=== PATIENT | male | born 1965 | race Caucasian/White ===

== ENCOUNTER 2017-04-12 23:04 | Inpatient (IN) | payer MEDICARE, OTHER ==
[2017-04-13] MEDS: ALBUMIN HUMAN 25% 100 ML IV ×2 (00:13→02:17)
[2017-04-13 00:26] LABS: ADD MAN DIFF? NO
[2017-04-13 00:30] LABS: WHITE BLOOD COUNT 7.8 10^3/ul (4.8-10.8)
[2017-04-13 00:30] LABS: BASOPHILS % 0.5 % (0.0-2.0); EOSINOPHILS # 0.3 10^3/ul (0.0-0.5); EOSINOPHILS % 3.8 % (0.0-7.0); HEMATOCRIT 45.4 % (42.0-52.0); HEMOGLOBIN 13.4 g/dl (14.0-18.0); LYMPHOCYTES % 13.2 % (15.0-51.0); MEAN CORPUSCULAR HGB CONC 29.5 g/dl (32.0-37.0); MEAN PLATELET VOLUME 10.6 fl (7.4-10.4); MONOCYTES % 12.1 % (0.0-11.0); NEUTROPHIL # 5.5 10^3/ul (1.6-7.5); NEUTROPHILS % 70.1 % (39.0-77.0); PLATELET COUNT 134 10^3/UL (140-415); RED BLOOD COUNT 5.82 10^6/ul (4.70-6.10); RED CELL DISTRIBUTION WIDTH 20.7 % (11.5-14.5)
[2017-04-13 00:53] LABS: PARTIAL THROMBOPLASTIN TIME 38.8 Sec (25.0-35.0)
[2017-04-13 00:56] LABS: ALANINE AMINOTRANSFERASE 57 IU/L (13-69); ALBUMIN 4.1 g/dl (3.3-4.9); ALBUMIN/GLOBULIN RATIO 1.07; ALKALINE PHOSPHATASE 127 IU/L (42-121); ANION GAP 19 (8-16); ASPARTATE AMINO TRANSFERASE 19 IU/L (15-46); BILIRUBIN,INDIRECT 0.1 mg/dl (0-1.1); BILIRUBIN,TOTAL 0.1 mg/dl (0.2-1.3); BLOOD UREA NITROGEN 31 mg/dl (7-20); CALCIUM 8.8 mg/dl (8.4-10.2); CARBON DIOXIDE 27 mmol/L (21-31); CHLORIDE 96 mmol/L (97-110); CREATININE 8.78 mg/dl (0.61-1.24); GLUCOSE 135 mg/dl (70-220); POTASSIUM 3.9 mmol/L (3.5-5.1); SODIUM 138 mmol/L (135-144); TOTAL PROTEIN 7.9 g/dl (6.1-8.1)
[2017-04-13 01:48] LABS: TROPONIN-I < 0.012 ng/ml (0.00-0.12)
[2017-04-13 02:08] LABS: LACTIC ACID 2.5 mmol/L (0.5-2.0)
[2017-04-13 02:53] LABS: LACTIC ACID 0.9 mmol/L (0.5-2.0)
[2017-04-13 03:08] LABS: INR 0.99; PROTIME 13.1 Sec (11.9-14.9)
[2017-04-13 03:43] LABS: LACTIC ACID 1.1 mmol/L (0.5-2.0)
[2017-04-13] MEDS: PIPER-TAZO 2.25 GM (PMX) 50 ML IVPB (03:47)
[2017-04-13] MEDS: VANCOMYCIN 1 GM (PMX) 250 ML IVPB (04:21)
[2017-04-13] MEDS ORDERED: VANCOMYCIN IV PER PHARMACY XX (07:00)
[2017-04-13] MEDS: AMLODIPINE 5 MG TAB PO (09:00)
[2017-04-13 09:33] LABS: ALANINE AMINOTRANSFERASE 50 IU/L (13-69); ALBUMIN 4.2 g/dl (3.3-4.9); ALBUMIN/GLOBULIN RATIO 1.31; ALKALINE PHOSPHATASE 87 IU/L (42-121); ANION GAP 22 (8-16); ASPARTATE AMINO TRANSFERASE 19 IU/L (15-46); BILIRUBIN,INDIRECT 0.1 mg/dl (0-1.1); BILIRUBIN,TOTAL 0.1 mg/dl (0.2-1.3); BLOOD UREA NITROGEN 37 mg/dl (7-20); CALCIUM 8.3 mg/dl (8.4-10.2); CARBON DIOXIDE 20 mmol/L (21-31); CHLORIDE 100 mmol/L (97-110); CREATININE 9.57 mg/dl (0.61-1.24); GLUCOSE 86 mg/dl (70-220); SODIUM 137 mmol/L (135-144); TOTAL PROTEIN 7.4 g/dl (6.1-8.1)
[2017-04-13] MEDS: CINACALCET 30 MG TAB PO (09:47)
[2017-04-13] MEDS: CALCITRIOL 0.25 MCG CAP PO (09:47)
[2017-04-13] MEDS: MIDODRINE 5 MG TAB PO ×2 (09:47→17:23)
[2017-04-13] MEDS: CALCIUM ACETATE 667 MG CAP PO ×3 (09:48→17:22)
[2017-04-13] MEDS: SEVELAMER 800 MG TAB PO ×3 (09:48→17:22)
[2017-04-13] MEDS: VANCOMYCIN 1 GM 250 ML IVPB (09:54)
[2017-04-14] MEDS: AMLODIPINE 5 MG TAB PO (08:28)
[2017-04-14] MEDS: SEVELAMER 800 MG TAB PO ×3 (08:29→17:20)
[2017-04-14] MEDS: CINACALCET 30 MG TAB PO (08:30)
[2017-04-14] MEDS: CALCIUM ACETATE 667 MG CAP PO ×3 (08:30→17:21)
[2017-04-14] MEDS: CALCITRIOL 0.25 MCG CAP PO (08:30)
[2017-04-14] MEDS: MIDODRINE 5 MG TAB PO ×2 (09:00→17:21)
[2017-04-15 07:31] LABS: VANCOMYCIN,RANDOM 26.1 ug/ml
[2017-04-15] MEDS: AMLODIPINE 5 MG TAB PO (09:00)
[2017-04-15] MEDS: CALCIUM ACETATE 667 MG CAP PO ×3 (12:00→18:05)
[2017-04-15] MEDS ORDERED: HEPARIN 1000 UNITS/NS (A-LINE) 1,000 ML (13:47)
[2017-04-15] MEDS ORDERED: IODIXANOL LOCM 100 ML BTL (13:47)
[2017-04-15] MEDS ORDERED: LIDOCAINE 1% (MDV) 20 ML INJ (13:47)
[2017-04-15] MEDS ORDERED: FENTAnyl 50 MCG/ML VIAL (14:00)
[2017-04-15] MEDS: MIDODRINE 5 MG TAB PO ×2 (17:00→17:41)
[2017-04-15] MEDS: CALCITRIOL 0.25 MCG CAP PO (17:40)
[2017-04-15] MEDS: CINACALCET 30 MG TAB PO (17:41)
[2017-04-15] MEDS: SEVELAMER 800 MG TAB PO (17:45)
[2017-04-15 21:41] LABS: HEPATITIS B SURFACE ANTIBODY POSITIVE (NEGATIVE)
[2017-04-15 21:45] LABS: HEPATITIS B SURFACE ANTIGEN NEGATIVE (NEGATIVE)
[2017-04-16 08:27] LABS: ADD MAN DIFF? NO
[2017-04-16 08:30] LABS: WHITE BLOOD COUNT 8.7 10^3/ul (4.8-10.8)
[2017-04-16 08:30] LABS: BASOPHIL # 0.1 10^3/ul (0.0-0.1); BASOPHILS % 0.6 % (0.0-2.0); EOSINOPHILS # 0.3 10^3/ul (0.0-0.5); EOSINOPHILS % 3.8 % (0.0-7.0); HEMATOCRIT 40.4 % (42.0-52.0); HEMOGLOBIN 12.2 g/dl (14.0-18.0); LYMPHOCYTES # 1.7 10^3/ul (0.8-2.9); LYMPHOCYTES % 19.4 % (15.0-51.0); MEAN CORPUSCULAR HEMOGLOBIN 22.9 pg (29.0-33.0); MEAN CORPUSCULAR HGB CONC 30.2 g/dl (32.0-37.0); MEAN CORPUSCULAR VOLUME 75.8 fl (82.0-101.0); MEAN PLATELET VOLUME 10.2 fl (7.4-10.4); MONOCYTE # 0.8 10^3/ul (0.3-0.9); MONOCYTES % 9.4 % (0.0-11.0); NEUTROPHIL # 5.8 10^3/ul (1.6-7.5); NEUTROPHILS % 66.6 % (39.0-77.0); PLATELET COUNT 195 10^3/UL (140-415); RED BLOOD COUNT 5.33 10^6/ul (4.70-6.10); RED CELL DISTRIBUTION WIDTH 20.2 % (11.5-14.5)
[2017-04-16] MEDS: AMLODIPINE 5 MG TAB PO (09:00)
[2017-04-16] MEDS: CINACALCET 30 MG TAB PO ×2 (09:00→11:42)
[2017-04-16] MEDS: SEVELAMER 800 MG TAB PO ×3 (09:22→18:23)
[2017-04-16] MEDS: CALCITRIOL 0.25 MCG CAP PO (09:22)
[2017-04-16] MEDS: CALCIUM ACETATE 667 MG CAP PO ×3 (09:22→18:25)
[2017-04-16 09:24] LABS: ANION GAP 27 (8-16); BLOOD UREA NITROGEN 79 mg/dl (7-20); CALCIUM 7.6 mg/dl (8.4-10.2); CARBON DIOXIDE 17 mmol/L (21-31); CHLORIDE 96 mmol/L (97-110); GLUCOSE 76 mg/dl (70-220); SODIUM 133 mmol/L (135-144)
[2017-04-16 09:39] LABS: CREATININE 15.08 mg/dl (0.61-1.24)
[2017-04-16 09:43] LABS: POTASSIUM 6.5 mmol/L (3.5-5.1)
[2017-04-16] MEDS: ALTEPLASE (CATHFLO) 2 MG INJ CATHETER (11:03)
[2017-04-16] MEDS: MIDODRINE 5 MG TAB PO ×2 (11:42→18:26)
[2017-04-16] MEDS: NA POLYST SULFON 15 GM/60 ML BTL PO (11:42)
[2017-04-16] MEDS: HEPARIN 1000 UNITS/ML 10 ML INJ CATHETER (21:30)
[2017-04-17 08:08] LABS: ADD MAN DIFF? NO
[2017-04-17 08:17] LABS: BASOPHIL # 0.1 10^3/ul (0.0-0.1); BASOPHILS % 0.7 % (0.0-2.0); EOSINOPHILS # 0.4 10^3/ul (0.0-0.5); EOSINOPHILS % 5.1 % (0.0-7.0); HEMATOCRIT 40.4 % (42.0-52.0); HEMOGLOBIN 11.9 g/dl (14.0-18.0); LYMPHOCYTES # 1.8 10^3/ul (0.8-2.9); LYMPHOCYTES % 24.3 % (15.0-51.0); MEAN CORPUSCULAR HEMOGLOBIN 22.5 pg (29.0-33.0); MEAN CORPUSCULAR HGB CONC 29.5 g/dl (32.0-37.0); MEAN CORPUSCULAR VOLUME 76.4 fl (82.0-101.0); MEAN PLATELET VOLUME 9.8 fl (7.4-10.4); MONOCYTE # 0.8 10^3/ul (0.3-0.9); MONOCYTES % 10.8 % (0.0-11.0); NEUTROPHIL # 4.3 10^3/ul (1.6-7.5); NEUTROPHILS % 58.8 % (39.0-77.0); PLATELET COUNT 180 10^3/UL (140-415); RED BLOOD COUNT 5.29 10^6/ul (4.70-6.10); RED CELL DISTRIBUTION WIDTH 20.2 % (11.5-14.5)
[2017-04-17 08:17] LABS: WHITE BLOOD COUNT 7.2 10^3/ul (4.8-10.8)
[2017-04-17 08:30] LABS: ANION GAP 21 (8-16); BLOOD UREA NITROGEN 55 mg/dl (7-20); CALCIUM 7.7 mg/dl (8.4-10.2); CARBON DIOXIDE 22 mmol/L (21-31); CHLORIDE 99 mmol/L (97-110); CREATININE 12.55 mg/dl (0.61-1.24); GLUCOSE 72 mg/dl (70-220); SODIUM 137 mmol/L (135-144)
[2017-04-17 08:43] LABS: POTASSIUM 5.1 mmol/L (3.5-5.1)
[2017-04-17] MEDS: CALCITRIOL 0.25 MCG CAP PO (08:46)
[2017-04-17] MEDS: CALCIUM ACETATE 667 MG CAP PO ×3 (08:47→16:43)
[2017-04-17] MEDS: SEVELAMER 800 MG TAB PO ×3 (08:47→16:43)
[2017-04-17] MEDS: CINACALCET 30 MG TAB PO (08:47)
[2017-04-17] MEDS: AMLODIPINE 5 MG TAB PO (08:47)
[2017-04-17] MEDS: MIDODRINE 5 MG TAB PO ×2 (09:49→16:42)
[2017-04-17] MEDS ORDERED: VANCOMYCIN 1 GM 250 ML IVPB (10:00)
[2017-04-17] MEDS ORDERED: VANCOMYCIN 1.25 GM in SOD CHLORIDE 0.45% 250 ML IVPB (10:00)
[2017-04-17] MEDS: SOD CHLORIDE 0.9% 250 ML IV (13:00)
[2017-04-18] MEDS: CALCIUM ACETATE 667 MG CAP PO ×3 (08:07→16:37)
[2017-04-18] MEDS: SEVELAMER 800 MG TAB PO ×3 (08:08→16:37)
[2017-04-18] MEDS: CINACALCET 30 MG TAB PO (08:08)
[2017-04-18] MEDS: CALCITRIOL 0.25 MCG CAP PO (08:13)
[2017-04-18] MEDS: MIDODRINE 5 MG TAB PO ×2 (08:14→16:37)
[2017-04-18 08:38] LABS: ADD MAN DIFF? NO
[2017-04-18 08:51] LABS: BASOPHIL # 0.1 10^3/ul (0.0-0.1); BASOPHILS % 0.9 % (0.0-2.0); EOSINOPHILS # 0.3 10^3/ul (0.0-0.5); EOSINOPHILS % 4.6 % (0.0-7.0); HEMATOCRIT 42.3 % (42.0-52.0); HEMOGLOBIN 12.3 g/dl (14.0-18.0); LYMPHOCYTES % 29.2 % (15.0-51.0); MEAN CORPUSCULAR HEMOGLOBIN 22.3 pg (29.0-33.0); MEAN CORPUSCULAR HGB CONC 29.1 g/dl (32.0-37.0); MEAN CORPUSCULAR VOLUME 76.6 fl (82.0-101.0); MEAN PLATELET VOLUME 10.4 fl (7.4-10.4); MONOCYTE # 0.7 10^3/ul (0.3-0.9); MONOCYTES % 10.7 % (0.0-11.0); NEUTROPHIL # 3.7 10^3/ul (1.6-7.5); NEUTROPHILS % 54.5 % (39.0-77.0); PLATELET COUNT 212 10^3/UL (140-415); RED BLOOD COUNT 5.52 10^6/ul (4.70-6.10); RED CELL DISTRIBUTION WIDTH 19.8 % (11.5-14.5)
[2017-04-18 08:51] LABS: WHITE BLOOD COUNT 6.7 10^3/ul (4.8-10.8)
[2017-04-18 09:19] LABS: ANION GAP 22 (8-16); BLOOD UREA NITROGEN 68 mg/dl (7-20); CARBON DIOXIDE 20 mmol/L (21-31); CHLORIDE 101 mmol/L (97-110); GLUCOSE 74 mg/dl (70-220); POTASSIUM 5.8 mmol/L (3.5-5.1); SODIUM 137 mmol/L (135-144)
[2017-04-18 09:30] LABS: CREATININE 14.64 mg/dl (0.61-1.24)
[2017-04-18] MEDS: NA POLYST SULFON 15 GM/60 ML BTL PO ×3 (12:13→23:20)
[2017-04-18] MEDS ORDERED: NA POLYST SULFON 15 GM/60 ML BTL PO (13:30)
[2017-04-19] MEDS: MIDODRINE 5 MG TAB PO ×2 (08:03→17:32)
[2017-04-19] MEDS: CALCIUM ACETATE 667 MG CAP PO ×3 (08:03→17:34)
[2017-04-19] MEDS: CINACALCET 30 MG TAB PO (08:03)
[2017-04-19] MEDS: SEVELAMER 800 MG TAB PO ×3 (08:03→17:34)
[2017-04-19] MEDS: CALCITRIOL 0.25 MCG CAP PO (08:08)
[2017-04-19 10:06] LABS: ADD MAN DIFF? NO
[2017-04-19 10:16] LABS: WHITE BLOOD COUNT 6.8 10^3/ul (4.8-10.8)
[2017-04-19 10:16] LABS: BASOPHIL # 0.1 10^3/ul (0.0-0.1); BASOPHILS % 1.2 % (0.0-2.0); EOSINOPHILS # 0.3 10^3/ul (0.0-0.5); EOSINOPHILS % 4.1 % (0.0-7.0); HEMATOCRIT 44.2 % (42.0-52.0); LYMPHOCYTES % 29.8 % (15.0-51.0); MEAN CORPUSCULAR HEMOGLOBIN 22.7 pg (29.0-33.0); MEAN CORPUSCULAR HGB CONC 29.4 g/dl (32.0-37.0); MEAN CORPUSCULAR VOLUME 77.3 fl (82.0-101.0); MEAN PLATELET VOLUME 10.2 fl (7.4-10.4); MONOCYTE # 0.6 10^3/ul (0.3-0.9); MONOCYTES % 8.3 % (0.0-11.0); NEUTROPHIL # 3.8 10^3/ul (1.6-7.5); NEUTROPHILS % 56.5 % (39.0-77.0); PLATELET COUNT 238 10^3/UL (140-415); RED BLOOD COUNT 5.72 10^6/ul (4.70-6.10); RED CELL DISTRIBUTION WIDTH 20.4 % (11.5-14.5)
[2017-04-19 10:42] LABS: ANION GAP 23 (8-16); BLOOD UREA NITROGEN 76 mg/dl (7-20); CALCIUM 8.2 mg/dl (8.4-10.2); CARBON DIOXIDE 22 mmol/L (21-31); CHLORIDE 98 mmol/L (97-110); GLUCOSE 66 mg/dl (70-220); POTASSIUM 4.9 mmol/L (3.5-5.1); SODIUM 138 mmol/L (135-144)
[2017-04-19 10:57] LABS: CREATININE 15.81 mg/dl (0.61-1.24)
[2017-04-19] MEDS ORDERED: HEPARIN 1000 UNITS/ML 10 ML INJ (16:05)
[2017-04-19] MEDS ORDERED: LIDOCAINE 1% (MDV) 20 ML INJ (16:05)
[2017-04-19] MEDS ORDERED: MIDAZOLAM 1 MG/ML 2 ML INJ (16:05)
[2017-04-19] MEDS ORDERED: FENTAnyl 50 MCG/ML VIAL (16:05)
[2017-04-19] MEDS ORDERED: HEPARIN 1000 UNITS/NS (A-LINE) 1,000 ML (16:05)
[2017-04-19] MEDS ORDERED: IODIXANOL LOCM 100 ML BTL (16:43)
[2017-04-20 07:45] LABS: ADD MAN DIFF? NO
[2017-04-20 07:47] LABS: WHITE BLOOD COUNT 6.7 10^3/ul (4.8-10.8)
[2017-04-20 07:47] LABS: BASOPHIL # 0.1 10^3/ul (0.0-0.1); BASOPHILS % 0.9 % (0.0-2.0); EOSINOPHILS # 0.3 10^3/ul (0.0-0.5); EOSINOPHILS % 4.1 % (0.0-7.0); HEMATOCRIT 38.3 % (42.0-52.0); HEMOGLOBIN 11.6 g/dl (14.0-18.0); LYMPHOCYTES # 1.6 10^3/ul (0.8-2.9); LYMPHOCYTES % 24.4 % (15.0-51.0); MEAN CORPUSCULAR HEMOGLOBIN 22.9 pg (29.0-33.0); MEAN CORPUSCULAR HGB CONC 30.3 g/dl (32.0-37.0); MEAN CORPUSCULAR VOLUME 75.7 fl (82.0-101.0); MEAN PLATELET VOLUME 10.2 fl (7.4-10.4); MONOCYTE # 0.7 10^3/ul (0.3-0.9); MONOCYTES % 10.7 % (0.0-11.0); NEUTROPHILS % 59.6 % (39.0-77.0); PLATELET COUNT 198 10^3/UL (140-415); RED BLOOD COUNT 5.06 10^6/ul (4.70-6.10); RED CELL DISTRIBUTION WIDTH 19.8 % (11.5-14.5)
[2017-04-20 08:22] LABS: ANION GAP 18 (8-16); BLOOD UREA NITROGEN 56 mg/dl (7-20); CALCIUM 7.9 mg/dl (8.4-10.2); CARBON DIOXIDE 23 mmol/L (21-31); CHLORIDE 100 mmol/L (97-110); CREATININE 12.12 mg/dl (0.61-1.24); GLUCOSE 82 mg/dl (70-220); POTASSIUM 4.3 mmol/L (3.5-5.1); SODIUM 137 mmol/L (135-144)
[2017-04-20] MEDS: CALCIUM ACETATE 667 MG CAP PO ×3 (08:59→17:17)
[2017-04-20] MEDS: SEVELAMER 800 MG TAB PO ×3 (09:00→17:17)
[2017-04-20] MEDS: CINACALCET 30 MG TAB PO (09:00)
[2017-04-20] MEDS: CALCITRIOL 0.25 MCG CAP PO (09:00)
[2017-04-20] MEDS: MIDODRINE 5 MG TAB PO ×2 (09:09→17:00)
== END 2017-04-20 17:20 | disposition home or self-care (01) | DRG 871 ==
LOC: MS4 04-13 04:43 → E/R 23:04 → MS4 04-13 02:52
PROC: 0J2TXYZ Change Other Device in Trunk Subcutaneous Tissue and Fascia, External Approach (ICD-10-PCS; principal; 2017-04-15 12:30)
PROC: 5A1D70Z Performance of Urinary Filtration, Intermittent, Less than 6 Hours Per Day (ICD-10-PCS; 2017-04-15 13:39)
DX: A41.9 Sepsis, unspecified organism (principal); N18.6 End stage renal disease; I13.2 Hypertensive heart and chronic kidney disease with heart failure and with stage 5 chronic kidney disease, or end stage renal disease; T82.49XA Other complication of vascular dialysis catheter, initial encounter; I50.20 Unspecified systolic (congestive) heart failure; Z99.2 Dependence on renal dialysis; D64.9 Anemia, unspecified
CPT/HCPCS: 36415; 37248; 71045; 80048; 80053; 80202; 82962; 83605; 84484; 85025; 85610; 85730; 86706; 87040; 87340; 90935; 93005; 96374; 96375; 96376; 99291-25